=== PATIENT | male | born 1985 | race African-American/Black ===

== ENCOUNTER 2024-12-30 18:44 | Emergency (ER) | payer OTHER ==
[~2024-12-30] VITALS: Ht 193 cm; Wt 115.0 kg
[2024-12-30 18:51] VITALS: O2SAT 100
[2024-12-30] MEDS: PIPERACILLIN/TAZO 3.375G/50ML 50 ML IV ONE (20:34)
[2024-12-30] MEDS: VANCOMYCIN 1G PREMIX 200 ML IV ONE (20:42)
[2024-12-30 20:49] LABS: BASOPHILS % 0.6 % (0.0-2.0); EOSINOPHILS % 4.9 % (0.0-5.0); HEMATOCRIT. 34.3 % (42.0-52.0); HEMOGLOBIN. 11.2 g/dL (14.0-18.0); LYMPHOCYTES % 25.1 % (20.0-50.0); MEAN CORPUSCULAR HEMOGLOBIN 30.1 pg (28.0-32.0); MEAN CORPUSCULAR HGB CONC 32.6 g/dL (31.0-37.0); MEAN CORPUSCULAR VOLUME 92.4 fL (80.0-94.0); MEAN PLATELET VOLUME 7.7 fl (7.4-10.4); MONOCYTES % 5.6 % (2.0-8.0); NEUTROPHILS % 63.8 % (40.0-76.0); PLATELET 340 x1000/uL (130-400); RED BLOOD CELL COUNT 3.71 mill/uL (4.7-6.1); RED CELL DISTRIBUTION WIDTH 14.8 % (11.6-14.6)
[2024-12-30 20:55] LABS: CHLORIDE 101 mEq/L (98-107); POTASSIUM 3.4 mEq/L (3.5-5.1); SODIUM 138 mEq/L (136-145)
[2024-12-30 20:56] LABS: CALCIUM 9.4 mg/dL (8.7-10.4); CARBON DIOXIDE 31 mEq/L (21-32)
[2024-12-30 21:01] LABS: GLUCOSE URINE NEGATIVE (NEGATIVE); KETONES URINE NEGATIVE (NEGATIVE)
[2024-12-30 21:01] LABS: CREATININE 0.9 mg/dL (0.6-1.3); GLUCOSE 148 mg/dL (70-105); UREA NITROGEN BLOOD 11 mg/dL (9-23)
[2024-12-30 21:02] LABS: PROTHROMBIN TIME 10.5 sec (9.6-11.0)
[2024-12-30 22:05] LABS: CLARITY URINE CLEAR (CLEAR); COLOR URINE YELLOW (YELLOW); SPECIFIC GRAVITY URINE 1.007 (1.005-1.030)
[2024-12-30 22:06] LABS: LEUKOCYTE ESTERASE URINE NEGATIVE (NEGATIVE); NITRITE URINE NEGATIVE (NEGATIVE); OCCULT BLOOD URINE NEGATIVE (NEGATIVE); PH URINE 6.5 (4.5-8.0); PROTEIN URINE NEGATIVE (NEGATIVE); UROBILINOGEN URINE 0.2 E.U./dL (0.2-1.0)
[2024-12-31 01:46] VITALS: BP 127/61; PULSE 78; RESP 20; TEMP 36.3; O2SAT 98
== END 2024-12-31 02:04 | disposition short-term general hospital (02) ==
LOC: ER 18:44
DX: L03.115 Cellulitis of right lower limb (principal); I87.8 Other specified disorders of veins; F20.9 Schizophrenia, unspecified; Z55.6 Problems related to health literacy; Z59.00 Homelessness unspecified
CPT/HCPCS: 99285; 96365; 93971; 80048; 81003; 83880; 83605; 85025; 85610; 87040; 36415; 84145; 73590; 96368; J2543; J3370; 96367